=== PATIENT | female | born 1935 | race Hispanic/Latino ===

== ENCOUNTER 2016-09-22 17:04 | Observation (INO) | payer MEDICARE, BC ==
[2016-09-22 17:44] VITALS: BMI 21.2
[2016-09-22 17:54] VITALS: TEMP 97.7
--- NOTE | 2016-09-22 18:05 | ED PDOC ---
Arrival/HPI <Addison Ridley - Last Filed: 09/22/16 22:09> - General Historian: Patient - History of Present Illness Time/Duration: 1 week Symptom Onset: Sudden Symptom Course: Unchanged Activities at Onset: Rest, Light Context: Home <Conrado Joyceo Toshia - Last Filed: 09/23/16 07:57> - General Chief Complaint: Upper Extremity Problem/Injury Time Seen by Provider: 09/22/16 17:32 - History of Present Illness Narrative History of Present Illness (Text): 09/22/16 17:58 A 81 year old patient whose past medical history includes, hypertension, CAD with a stent, presents to the emergency department with one week duration left arm pain. She states that the discomfort began as a tingling down her arm. Today around noon the pain began as a throbbing pain. the patient denies the pain worsening with movement. The patient denies trauma or injury, weakness, numbness, headache, chest pain, shortness of breath, dizziness, abdominal pain, nausea, vomiting, diarrhea, cough, dyspnea, or any other complaint. (Derrick Joyce) Past Medical History - Provider Review Nursing Documentation Reviewed: Yes - Infectious Disease Hx of Infectious Diseases: None - Cardiac Hx Cardiac Disorders: Yes Hx Angina: No Hx Cardiac Arrhythmia: Yes Hx Circulatory Problems: No Hx Heart Murmur: No Hx Heart Transplant: No Hx Hypertension: Yes Hx Internal Defibrillator: No Hx Mitral Valve Prolapse: No Hx Pacemaker: No Hx Peripheral Edema: No Hx Peripheral Vascular Disease: No - Pulmonary Hx Respiratory Disorders: No Hx Asthma: No Hx Bronchitis: No Hx Chronic Obstructive Pulmonary Disease (COPD): No Hx Emphysema: No Hx Pneumonia: No Hx Respiratory Aspiration: No Hx Respiratory Tract Infection: No Hx Sleep Apnea: No Hx Tuberculosis: No - Neurological Hx Neurological Disorder: No Hx Alzheimer's Disease: No HX Cerebrovascular Accident: No Hx Dementia: No Hx Dizziness: No Hx Meningitis: No Hx Migraine: No Hx Parkinson's Disease: No Hx Seizures: No Hx Transient Ischemic Attacks (TIA): No - HEENT Hx HEENT Disorder: No Hx Blind: No Hx Cataracts: No Hx Deafness: No Hx Difficulty Chewing: No Hx Epistaxis: No Hx Glaucoma: No Hx Macular Degeneration: No - Renal Hx Renal Disorder: No Hx Dialysis: No Hx Kidney Stones: No Hx Neurogenic Bladder: No Hx Pyelonephritis: No Hx Renal Cancer: No Hx Renal Failure: No - Endocrine/Metabolic Hx Endocrine Disorders: No Hx Adrenal Cancer: No Hx Diabetes Insipidus: No Hx Diabetes Mellitus Type 1: No Hx Diabetes Mellitus Type 2: No Hx Hyperthyroidism: No Hx Hypothyroidism: No Hx Systemic Lupus Erythematosus: No - Hematological/Oncological Hx Blood Disorders: No Hx AIDS: No Hx Anemia: No Hx Cancer: No Hx Chemotherapy: No Hx Cirrhosis: No Hx Hemophilia: No Hx Hepatitis A: No Hx Hepatitis B: No Hx Hepatitis C: No Hx Metastasis: No Hx Shingles: No Hx Sickle Cell Disease: No Hx Unexplained Bleeding: No - Integumentary Hx Dermatological Disorder: No Hx Basal Cell Carcinoma: No Hx Eczema: No Hx Melanoma: No Hx Psoriasis: No Hx Squamous Cell Carcinoma: No - Musculoskeletal/Rheumatological Hx Musculoskeletal Disorders: No Hx Arthritis: No Hx Back Pain: No Hx Degenerative Joint Disease: No Hx Falls: No Hx Fractures: No Hx Gout: No Hx Herniated Disk: No Hx Myasthenia Gravis: No Hx Osteoarthritis: No Hx Osteomyelitis: No Hx Osteoporosis: No Hx Rhabdomyolysis: No Hx Spinal Stenosis: No Hx Unsteady Gait: No - Gastrointestinal Hx Gastrointestinal Disorders: No Hx Colostomy: No Hx Crohn's Disease: No Hx Diverticulitis: No Hx Gall Bladder Disease: No Hx Gastroesophageal Reflux: No Hx Gastrointestinal Ulcer: No Hx Ileostomy: No Hx Liver Failure: No Hx Pancreatitis: No HX Swallowing Problems: No - Genitourinary/Gynecological Hx Genitourinary Disorders: No Hx Hematuria: No Hx Incontinence: No Hx Prostate Problems: No Hx Sexually Transmitted Diseases: No Hx Urinary Tract Infection: No - Psychiatric Hx Psychophysiologic Disorder: No Hx Anxiety: Yes Hx Bipolar Disorder: No Hx Depression: No Hx Emotional Abuse: No Hx Hallucinations: No Hx Panic Disorder: No Hx Post Traumatic Stress Disorder: No Hx Psychosis: No Hx Physical Abuse: No Hx Schizophrenia: No Hx Sexual Abuse: No Hx Substance Use: No - Surgical History Hx Amputation: No Hx Appendectomy: No Hx Cardiac Catheterization: No Hx Cholecystectomy: No Hx Coronary Stent: Yes Hx Gastric Bypass Surgery: No Hx Hysterectomy: No Hx Joint Replacement: No Hx Kidney Transplant: No Hx Liver Transplant: No Hx Mastectomy: No Hx Musculoskeletal Surgery: No Hx Open Heart Surgery: No Hx Orthopedic Surgery: No Hx Splenectomy: No Hx Valve Replacement: No - Anesthesia Hx Anesthesia Reactions: No - Suicidal Assessment Feels Threatened In Home Enviroment: No <Derrick Joyce - Last Filed: 09/23/16 07:57> Family/Social History - Physician Review Nursing Documentation Reviewed: Yes Family/Social History: No Known Family HX Smoking Status: Never Smoked Hx Alcohol Use: No Hx Substance Use: No Hx Substance Use Treatment: No <Derrick Joyce - Last Filed: 09/23/16 07:57> Allergies/Home Meds <KhaiAddison - Last Filed: 09/22/16 22:09> <Derrick Joyce - Last Filed: 09/23/16 07:57> Allergies/Adverse Reactions: Allergies Tetracyclines Allergy (Verified 07/17/15 19:41) RASH Home Medications: Home Meds Medication Instructions Recorded Confirmed Aspirin [Ecotrin] 325 mg PO DAILY 07/10/11 09/22/16 [place]/Ca/Cu/mg/Mn/Vit C/Vit 1 tab PO DAILY 07/10/11 09/22/16 [Oscal Ultra 600] Clopidogrel [Plavix] 75 mg PO DAILY 07/10/11 09/22/16 Duloxetine Hydrochloride [Cymbalta] 60 mg PO DAILY 07/10/11 09/22/16 Levothyroxine Sodium 0.05 mg PO DAILY 07/10/11 09/22/16 [Levothyroxine] Losartan [Cozaar] 50 mg PO BID 07/10/11 09/22/16 Metoprolol Succinate [Metoprolol 25 mg PO DAILY 07/10/11 09/22/16 Succinate Xl] Multivitamin and [id number] 1 tab PO DAILY 07/10/11 09/22/16 [Centrum Silver] Simvastatin 40 mg PO DAILY 07/10/11 09/22/16 Review of Systems - Physician Review All systems were reviewed & negative as marked: Yes - Review of Systems Constitutional: absent: Fevers, Night Sweats Respiratory: absent: SOB, Cough Cardiovascular: absent: Chest Pain Gastrointestinal: absent: Abdominal Pain, Diarrhea, Nausea, Vomiting Musculoskeletal: Other (Left arm pain) Neurological: absent: Headache, Dizziness <Derrick Joyce - Last Filed: 09/23/16 07:57> Physical Exam Vital Signs Reviewed: Yes Temperature: Afebrile Blood Pressure: Hypertensive Pulse: Regular Respiratory Rate: Normal Appearance: Positive for: Well-Appearing, Non-Toxic, Comfortable Pain Distress: None Mental Status: Positive for: Alert and Oriented X 3 - Systems Exam Head: Present: Atraumatic, Normocephalic Pupils: Present: PERRL Extroacular Muscles: Present: EOMI Conjunctiva: Present: Normal Mouth: Present: Moist Mucous Membranes Neck: Present: Normal Range of Motion Respiratory/Chest: Present: Clear to Auscultation, Good Air Exchange. No: Respiratory Distress, Accessory Muscle Use Cardiovascular: Present: Regular Rate and Rhythm, Normal S1, S2. No: Murmurs Abdomen: Present: Normal Bowel Sounds. No: Tenderness, Distention, Peritoneal Signs Back: Present: Normal Inspection Upper Extremity: Present: Normal ROM (full ROM left arm. Strength intact.). No : Tenderness (Left arm no tenderness) Lower Extremity: Present: Normal Inspection. No: Edema Neurological: Present: GCS=15, CN II-XII Intact, Speech Normal Skin: Present: Warm, Dry, Normal Color. No: Rashes Psychiatric: Present: Alert, Oriented x 3, Normal Insight, Normal Concentration <Derrick Joyce - Last Filed: 09/23/16 07:57> Vital Signs Temp Pulse Resp BP Pulse Ox 09/22/16 23:00 60 14 140/60 96 09/22/16 17:53 97.7 F 62 17 163/73 H 98 09/22/16 17:38 97.9 F 62 16 143/96 H 99 Medical Decision Making <Addisno Ridley - Last Filed: 09/22/16 22:09> - Lab Interpretations I have reviewed the lab results: Yes - EKG Interpretation Interpreted by ED Physician: Yes Type: 12 lead EKG <Derrick Joyce - Last Filed: 09/23/16 07:57> ED Course and Treatment: 09/22/16 19:05 sign out from day shift. Pt with upper extremity pain. as per Dr. Joyce, case was dw Dr. Vines who recommended dc if 2nd troponin negative I spoke with Dr. 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 Pt informed she needs close f/u with her PMD for further w/u. Verbalized understanding Pt states she understands to return to the ER right away for new or worsening symptoms or for inability to f/u with PMD or specialist as instructed. Patient states that she fully agrees with and understands discharge instructions. States that she agrees with the plan and disposition. Verbalized and repeated discharge instructions and plan. I have given the patient opportunity to ask any additional questions. 09/22/16 22:09 Repeat 2nd EKG with no evolving changes. (Addison Ridley) 09/22/16 18:08 Impression: A 81 year old female with 1 day duration left arm pain. Differential Diagnosis included but are not limited to: Left arm pain secondary to cardiac vs. Musculoskeletal Plan: -- EKG -- Labs -- Left Humerus/Chest X-ray -- Toradol -- Reassess and disposition Progress Notes: EKG: Ordered, reviewed, and independently interpreted the EKG. Rate : 58 BPM Rhythm : Bradycardic 09/22/16 19:[address] Vines who agrees with 2 troponins and can go home. He states she had a recent complete cardiac work up and she can f/u with him and her assistant professor of philosophy. Case was discussed with Dr. Ridley to f/u 2nd troponin and EKG, reevaluate and disposition. (Derrick Joyce) - Lab Interpretations Lab Results: 09/22/16 18:10 09/22/16 18:10 Lab Results 09/22/16 18:10: PT 10.2, INR 0.94, APTT 25.0 09/22/16 18:10: Sodium 136, Potassium 4.1, Chloride 102, Carbon Dioxide 27, Anion Gap 11, BUN 30 H, Creatinine 1.1, Est GFR ( Amer) 58, Est GFR (Non- Af Amer) 48, Random Glucose 90, Calcium 10.4, Magnesium 2.1, Total Bilirubin 0.4 , AST 40 H, ALT 29, Alkaline Phosphatase 78, Lactate Dehydrogenase 478, Total Creatine Kinase 105, Troponin I < 0.01, Total Protein 7.0, Albumin 4.0, Globulin 2.9, Albumin/Globulin Ratio 1.4 09/22/16 18:10: WBC 5.2, RBC 3.62, Hgb 11.3 L, Hct 33.9 L, MCV 93.6, MCH 31.2, MCHC 33.3, RDW 12.5, Plt Count 216, MPV 8.9, Gran % 52.0, Lymph % (Auto) 35.2 H , Cook % (Auto) 10.9 H, Eos % (Auto) 1.3 L, Baso % (Auto) 0.6, Gran # 2.72, Lymph # 1.8, Cook # 0.6, Eos # 0.1, Baso # 0.03 - RAD Interpretation Radiology Orders: 09/22/16 17:48 CHEST PORTABLE [RAD] Stat HUMERUS LEFT [RAD] Stat - Medication Orders Current Medication Orders: Discontinued Medications Ketorolac Tromethamine (Toradol) 15 mg IVP STAT STA Stop: 09/22/16 17:57 Last Admin: 09/22/16 18:38 Dose: 15 mg ED OBSERVATION Discharge: Yes <Addison Ridley - Last Filed: 09/22/16 22:09> Discharge: Yes Date of observation admission: 09/22/16 Time of observation admission: 18:48 <Derrick Joyce - Last Filed: 09/23/16 07:57> <Addison Ridley - Last Filed: 09/22/16 22:09> - Scribe Statement The provider has reviewed the documentation as recorded by the Scribe <Derrick Joyce - Last Filed: 09/23/16 07:57> - Scribe Statement Deanna Jean Provider Scribe Attestation: All medical record entries made by the Scribe were at my direction and personally dictated by me. I have reviewed the chart and agree that the record accurately reflects my personal performance of the history, physical exam, medical decision making, and the department course for this patient. I have also personally directed, reviewed, and agree with the discharge instructions and disposition. (Derrick Joyce) Disposition/Present on Arrival - Present on Arrival Any Indicators Present on Arrival: No - Disposition Have Diagnosis and Disposition been Completed?: Yes Disposition Time: 18:48 Patient Plan: Discharge <Addison Ridley - Last Filed: 09/22/16 22:09> - Present on Arrival History of DVT/PE: No History of Uncontrolled Diabetes: No Urinary Catheter: No History of Decub. Ulcer: No History Surgical Site Infection Following: None <Derrick Joyce - Last Filed: 09/23/16 07:57> - Disposition Diagnosis: Extremity pain Disposition: HOME/ ROUTINE Condition: STABLE
[2016-09-22 18:26] LABS: BASO # 0.03 K/mm3 (0.0-2.0); BASO % 0.6 % (0.0-3.0); EOS # 0.1 (0.0-0.7); EOS % 1.3 % (1.5-5.0); GRAN # 2.72 (1.4-6.5); HEMOGLOBIN 11.3 g/dL (12.0-16.0); LYMPH # 1.8 (1.2-3.4); LYMPH % 35.2 % (22.0-35.0); MEAN CELL VOLUME 93.6 fl (80.0-105.0); MEAN CORPUSCULAR HEMOGLOBIN 31.2 pg (25.0-35.0); MEAN CORPUSCULAR HGB CONC 33.3 g/dl (31.0-37.0); MEAN PLATELET VOLUME 8.9 fl (7.0-11.0); MONO # 0.6 (0.1-0.6); MONO % 10.9 % (1.0-6.0); PLATELET COUNT 216 10^3/uL (120.0-450.0); RBC 3.62 10^6/uL (3.5-6.1); RED CELL DISTRIBUTION WIDTH 12.5 % (11.5-14.5); WHITE BLOOD COUNT 5.2 10^3/ul (4.5-11.0)
[2016-09-22 18:33] LABS: INR 0.94 (0.93-1.08); PROTHROMBIN TIME 10.2 Seconds (9.9-11.8)
[2016-09-22 18:35] LABS: ALB/GLOB RATIO 1.4 (1.1-1.8); ALT/SGPT 29 U/L (7-56); AST/SGOT 40 U/L (15-39); BLOOD UREA NITROGEN 30 mg/dL (7-21); CALCIUM 10.4 mg/dL (8.4-10.5); GFR AFRICAN-AMERICAN 58; GFR NON-AFRICAN AMERICAN 48; MAGNESIUM 2.1 mg/dL (1.7-2.2)
[2016-09-22 18:44] LABS: TROPONIN I < 0.01 ng/mL
[2016-09-22 21:34] LABS: TROPONIN I < 0.01 ng/mL
[2016-09-22 23:01] VITALS: BP 140/60; PULSE 60; RESP 14; O2SAT 96
--- NOTE | 2016-09-22 23:24 | CARD ---
APPROVED REPORT EKG Measurement Heart [id number] <Conclusion> Sinus bradycardia with sinus arrhythmia Left axis deviation Abnormal ECG
--- NOTE | 2016-09-23 10:20 | RAD ---
HISTORY: left arm pain COMPARISON: 09/18/2012 FINDINGS: LUNGS: No active pulmonary disease. PLEURA: No significant pleural effusion identified, no pneumothorax apparent. CARDIOVASCULAR: Normal. OSSEOUS STRUCTURES: No significant abnormalities. VISUALIZED UPPER ABDOMEN: Normal. OTHER FINDINGS: None. IMPRESSION: No active disease.
--- NOTE | 2016-09-23 10:22 | RAD ---
PROCEDURE: Radiographs of the left humerus. HISTORY: left arm pain COMPARISON: None. FINDINGS: BONES: There is a benign-appearing cortical lesion in the mid humerus. No evidence of fracture SOFT TISSUES: Normal. OTHER FINDINGS: None. IMPRESSION: Negative study
--- NOTE | 2016-09-23 23:49 | CARD ---
APPROVED REPORT EKG Measurement Heart [id number] <Conclusion> Sinus bradycardia Otherwise normal ECG
== END 2016-09-22 21:56 | disposition home or self-care (01) ==
LOC: ED 17:04 → EROBSV 18:45
PROVIDERS: ADMIT Emergency Medicine; ATTEND Emergency Medicine
DX: M79.602 Pain in left arm (principal); I25.10 Atherosclerotic heart disease of native coronary artery without angina pectoris; I10 Essential (primary) hypertension
CPT/HCPCS: 71010; 73060; 80053; 82550; 83615; 83735; 84484; 85025; 85610; 85730; 93005; 96374; 99284; G0378; J1885